=== PATIENT | female | born 1970 | race African-American/Black ===

== ENCOUNTER 2017-05-22 11:16 | Emergency (ER) | payer BC ==
[~2017-05-22] VITALS: Ht 165.1 cm; Wt 106.1 kg
[~2017-05-22 11:16] MED LIST: IBUPROFEN 800800 M1 PO; IBUPROFEN 800800 MG PO; NAPROSYN500 MG PO; NOHOMEMEDICATIONS; NORCO 5-325 TA1 EACH PO
[2017-05-22 12:16] LABS: ABSOLUTE NEUTROPHILS 9.1 thou/uL (1.4-8.2); BASOPHILS 0.2 % (0.0-2.0); EOSINOPHILS 0.1 % (0.0-3.0); HEMOGLOBIN 12.4 gm/dL (12.0-15.0); LYMPHOCYTES 2.3 % (24.0-44.0); MCH 28.7 pg (26.0-34.0); MCHC 33.4 g/dL (28.0-37.0); MCV 85.9 fL (80.0-100.0); MONOCYTES 3.7 % (1.0-8.0); PLATELET COUNT 201 thou/uL (150-400); POLYS 93.7 % (36.0-66.0); RBC 4.31 mil/uL (4.20-5.00); RDW 14.5 % (10.5-14.5); WBC 9.7 thou/uL (4.0-11.0)
[2017-05-22 12:24] LABS: CREATININE 0.9 mg/dL (0.6-1.0); POTASSIUM 3.8 mmol/L (3.5-5.1)
[2017-05-22] MEDS ORDERED: OSELB75 PO (12:49)
== END 2017-05-22 13:13 | disposition home or self-care (01) ==
LOC: ER 11:16
PROVIDERS: Physician Assistant
DX: J11.1 Influenza due to unidentified influenza virus with other respiratory manifestations (principal)

== ENCOUNTER 2017-06-19 08:15 | Emergency (ER) | payer BC ==
[~2017-06-19] VITALS: Ht 165.1 cm; Wt 104.3 kg
--- NOTE | ~2017-06-19 | EKG ---
[place] [id number] [address] [facility] [employer] [place] [address] ELECTROCARDIOGRAM REPORT Name: KEIRAJOYCE Herrera Room #: [facility] Katherine#: [id number] Admission: 06/19/17 Attend Phys: Discharge: 06/19/17 Date of : 68 Report #: [id number] THIS REPORT FOR: //name// [facility] ED Test Date: 2017-06-19 Test Time: 09:11:08 Pat Name: JOYCE CROCKETT Department: Room: Gender: F Charge Attendant: 11 : 1970 Requested By: Frances Royal Order Number: [id number] MD: Zi Moeller Measurements Intervals [place] Rate: 64 P: 6 OK: 167 QRS: -8 QRSD: 101 T: 3 QT: 416 QTc: 430 Interpretive Statements Sinus rhythm No significant abnormality No previous ECG available for comparison Electronically Signed On 06-20-2017 8:18:12 ACQUISITION ADVISOR by Zi Moeller [email or web address] <ELECTRONICALLY SIGNED> By: Zi Moeller MD, [facility] 06/20/17 0818 0911 0911 Zi Moeller MD, FACC /EPI
[~2017-06-19 08:15] MED LIST changes: +OSELB75 PO
[2017-06-19] MEDS ORDERED: PRILOSEC OTC20 MG PO (08:22)
[2017-06-19 09:24] LABS: ABSOLUTE NEUTROPHILS 4.9 thou/uL (1.4-8.2); BASOPHILS 0.6 % (0.0-2.0); EOSINOPHILS 1.9 % (0.0-3.0); HEMATOCRIT 35.3 % (37.0-47.0); HEMOGLOBIN 12.3 gm/dL (12.0-15.0); LYMPHOCYTES 22.8 % (24.0-44.0); MCH 30.1 pg (26.0-34.0); MCHC 34.8 g/dL (28.0-37.0); MCV 86.6 fL (80.0-100.0); MONOCYTES 5.5 % (1.0-8.0); PLATELET COUNT 205 thou/uL (150-400); POLYS 69.2 % (36.0-66.0); RBC 4.07 mil/uL (4.20-5.00); RDW 14.5 % (10.5-14.5); WBC 7.1 thou/uL (4.0-11.0)
[2017-06-19 09:37] LABS: ANION GAP 5 mmol/L (7-16); BUN 9 mg/dL (7-18); CALCIUM 8.8 mg/dL (8.5-10.1); CHLORIDE 106 mmol/L (98-107); CO2 27 mmol/L (21-32); CREATININE 0.8 mg/dL (0.6-1.0); GLUCOSE 87 mg/dL (74-106); POTASSIUM 3.5 mmol/L (3.5-5.1); SODIUM 138 mmol/L (136-145)
[2017-06-19 09:44] LABS: ALBUMIN 3.1 g/dL (3.4-5.0); SGOT 21 U/L (15-37); SGPT 20 U/L (30-65); TOTAL BILIRUBIN 0.2 mg/dL (<0.1-1.0); TOTAL PROTEIN 7.3 g/dL (6.4-8.2); TROPONIN-I < 0.04 ng/mL (<0.06)
== END 2017-06-19 10:10 | disposition home or self-care (01) ==
LOC: ER 08:15
PROVIDERS: Physician Assistant
DX: R07.89 Other chest pain (principal); R20.2 Paresthesia of skin; N64.4 Mastodynia

== ENCOUNTER → 2017-06-23 | Outpatient (CLI) | payer BC ==
[~2017-06-23] MED LIST changes: +PRILOSEC OTC20 MG PO
== END ==
LOC: RAD 01:28
DX: Z12.31 Encounter for screening mammogram for malignant neoplasm of breast (principal)

== ENCOUNTER → 2017-06-27 | Outpatient (CLI) | payer BC | LOC: ULTRA 12:57 | DX: N60.02 Solitary cyst of left breast (principal); N63.20 Unspecified lump in the left breast, unspecified quadrant; N63.10 Unspecified lump in the right breast, unspecified quadrant; R92.8 Other abnormal and inconclusive findings on diagnostic imaging of breast ==